=== PATIENT | female | born 1990 | race Caucasian/White ===

== ENCOUNTER 2017-07-31 19:13 | Emergency (ER) | payer OTHER ==
[~2017-07-31] VITALS: Ht 162.6 cm; Wt 90.5 kg
[2017-07-31 19:54] VITALS: TEMP 36.7; Ht 162.6 cm; Wt 90.5 kg
[2017-07-31] MEDS ORDERED: AMOXICILLIN 250 MG CAP PO STA (21:15)
--- NOTE | 2017-07-31 21:25 | EMERGENCY ROOM VISIT NOTE ---
History Report prepared by Kassidy: Marques Curran Under the Supervision of: Dr. Rekha Christianson, D.O. First contact with patient: 20:44 Chief Complaint: HEARING LOSS Stated Complaint: LOSS OF HEARING IN RIGHT EAR History of Present Illness The patient is a 27 year old female who presents to the Emergency Room with complaints of a constant inability to hear out of her right ear beginning yesterday. The patient states it was sudden, and she has not heard humming, buzzing, echoing, or ringing in her right ear. She notes she only has pain when she inserts her finger in her ear canal. She reports she developed a headache last night the resolved on its own. The patient notes she has recently been experiencing a cough, cold, sinus pressure, and chills. She states she has had tubes placed in her ears, bilaterally, when she was younger. The patient denies fevers, dizziness, lightheadedness, unsteadiness when she walks, neck pain, numbness or tingling to her arms, weakness to her arms, the chance of , and pain when tugging on her ears. She notes she is not from here and does not have a local PCP. Source of History: patient Onset: yesterday Position: ear (right) Quality: other (inability to hear) Timing: constant Associated Symptoms: + chills, + headache (resolved), + cough, No fevers, No neck pain, No weakness, No numbness Note: Associated symptoms: pain when inserting her finger into her ear, sinus pressure , cold Denies: dizziness, lightheadedness, unsteadiness when she walks, neck pain, tingling to her arms, , the chance of , and pain when tugging on her ears Review of Systems See HPI for pertinent positives & negatives. A total of 10 systems reviewed and were otherwise negative. Past Medical & Surgical Surgical Problems: (1) S/p bilateral myringotomy with tube placement Family History Patient reports no known family medical history. Social History Smoking Status: Current Every Day Smoker Marital Status: in relationship Housing Status: lives with family Current/Historical Medications Scheduled Amoxicillin (Amoxil), 875 MG PO BID Allergies Coded Allergies: No Known Allergies (Unverified , 07/31/17) Physical Exam Vital Signs Date Time Temp Pulse Resp B/P (MAP) Pulse Ox O2 Delivery O2 Flow Rate FiO2 07/31/17 21:46 102 18 118/78 98 07/31/17 20:55 107 18 124/64 98 Room Air 07/31/17 19:54 36.7 111 18 122/67 98 Room Air Physical Exam GENERAL: alert, well appearing, well nourished, no distress, non-toxic EYE EXAM: normal conjunctiva, PERRL and EOM's grossly intact OROPHARYNX: no exudate, no erythema, lips, buccal mucosa, and tongue normal and mucous membranes are moist EARS: Right TM is erythematous and bulging. Small fluid collection behind the TM. Normal canal. Left TM is clear and normal. No sinus or mastoid tenderness to percussion. NECK: supple, no nuchal rigidity, no adenopathy, non-tender LUNGS: Clear to auscultation. Normal chest wall mechanics HEART: no murmurs, S1 normal and S2 normal ABDOMEN: abdomen soft, non-tender, normo-active bowel sounds, no masses, no rebound or guarding. BACK: Back is symmetrical on inspection and there is no deformity, no midline tenderness, no CVA tenderness. SKIN: no rashes and no bruising UPPER EXTREMITIES: upper extremities are grossly normal. LOWER EXTREMITIES: No pitting edema. NEURO EXAM: Normal sensorium, cranial nerves II-XII intact, normal speech, no weakness of arms, no weakness of legs. Medical Decision & Procedures Medications Administered Medications (Trade) Dose Ordered Sig/Lacy Route Start Time Stop Time Status Last Admin Dose Admin Amoxicillin (Amoxil Cap) 875 mg NOW STAT PO 07/31/17 21:15 07/31/17 21:16 DC 07/31/17 21:41 750 MG ED Course 2105: The patient was evaluated in room C12B. A complete history and physical exam was performed. I discussed the findings and the treatment plan with the patient. She verbalizes agreement and understanding. The patient will be discharged home when she receives her antibiotics. 2114: Ordered Amoxicillin 875mg PO Medical Decision The patient is a 27 year old female who presents to the ED with complaints of the inability to hear out of her right ear. Differential diagnoses otitis media , otitis externa, TM perforation, Meniere's disease, CPA tumor, mastoiditis Medication Reconcilliation Current Medication List: was personally reviewed by me Blood Pressure Screening Patient's blood pressure: Normal blood pressure Blood pressure disposition: Did not require urgent referral Impression Primary Impression: Acute otitis media Additional Impression: Hearing loss Scribe Attestation The scribe's documentation has been prepared under my direction and personally reviewed by me in its entirety. I confirm that the note above accurately reflects all work, treatment, procedures, and medical decision making performed by me. Departure Information Dispostion Home / Self-Care Prescriptions Amoxicillin (AMOXIL) 500 Mg Tab 875 MG PO BID, #20 TAB Prov: Rekha Christianson, DO 07/31/17 Referrals No Doctor, Assigned (PCP) Forms HOME CARE DOCUMENTATION FORM, IMPORTANT VISIT INFORMATION, WORK / SCHOOL INSTRUCTIONS Patient Instructions Ear Infection - [facility], Hearing Loss, [facility] Additional Instructions Please take the antibiotics as prescribed. Please consider using probiotics while you're taking antibiotics. Please drink plenty of water. You may use Tylenol or ibuprofen as needed for pain. Please follow up with your family doctor to recheck your ear. If the hearing loss does not improve with treatment of the ear infection, you'll need additional follow-up and possibly imaging. Please follow-up with the ear nose and throat doctor at that time. If you develop dizziness, headaches, fevers, facial pain or tenderness, numbness or tingling, facial droop, swelling of the face, or you have any other new or concerning symptoms, please return the emergency room. Problem Qualifiers Primary Impression: Acute otitis media Otitis media type: unspecified Qualified Codes: H66.90 - Otitis media, unspecified, unspecified ear Additional Impression: Hearing loss Hearing loss type: unspecified Laterality: right Qualified Codes: H91.91 - Unspecified hearing loss, right ear
[2017-07-31] MEDS ORDERED: AMOX500T3 PO (21:29)
[2017-07-31 21:46] VITALS: BP 118/78; PULSE 102; O2SAT 98
== END 2017-07-31 21:45 | disposition home or self-care (01) ==
LOC: C.EDB 19:17 → C.EDC 21:45
DX: H66.91 Otitis media, unspecified, right ear (principal); H91.91 Unspecified hearing loss, right ear; F17.200 Nicotine dependence, unspecified, uncomplicated